=== PATIENT | male | born 1970 | race Caucasian/White ===

== ENCOUNTER 2023-10-27 16:30 | Emergency (ER) | payer OTHER ==
[2023-10-27] MEDS ORDERED: MORPHINE 4 MG/ML SYR ONE (17:06)
[2023-10-27] MEDS ORDERED: NA CHLORIDE 0.9% 1,000 ML ONE ×2 (17:06→18:17)
[2023-10-27] MEDS ORDERED: MAGNESIUM SULFATE 1 gm IVPB 1 GM/100 ML BAG IV ONE (17:06)
[2023-10-27] MEDS ORDERED: ONDANSETRON 4 MG/2 ML VIAL ONE (17:06)
[2023-10-27 17:11] LABS: Absolute Basophils 0.1 K/uL (0-0.5); Absolute Eosinophils 0.2 K/uL (0-0.5); Absolute Lymphocytes (CBC) 1.8 K/uL (0.7-4.9); Absolute Monocytes 1.1 K/uL (0.1-1.3); Absolute Neutrophil 6.8 K/uL (1.8-8.0); Basophils % 0.5 % (0-1.3); Eosinophils % 1.8 % (0-4.4); Hematocrit 41.5 % (39.6-49.0); Hemoglobin 14.1 g/dL (13.6-17.9); Lymphocytes % 18.5 % (15.3-44.8); MCH 28.5 pg (27.0-35.0); MCHC 33.9 g/dL (32.0-36.0); MPV 8.7 fL (7.6-11.3); Monocytes % 10.7 % (3.3-12.3); Neutrophils % 68.5 % (41.7-73.7); Platelets 224 thou/uL (152-406); RBC Red Blood Cell Count 4.94 M/uL (4.33-5.43)
[2023-10-27 17:22] LABS: Specific Gravity 1.015 (1.005-1.030); Sqamous Epithelial None Seen /HPF (None Seen); Urine Bacteria 20-50 /HPF (<20); Urine Bilirubin 2+ (Negative); Urine Blood Negative (Negative); Urine Clarity Turbid (Clear); Urine Color Dark-Yellow (Yellow); Urine Culture Reflex Order REFLEXED; Urine Glucose NEGATIVE (Negative); Urine Ketones NEGATIVE (Negative); Urine Microscopic Reflex YN ORDER UMIC; Urine Mucus Slight /HPF (None Seen); Urine Nitrite 1+ (Negative); Urine Protein NEGATIVE (Negative); Urine Urobilinogen 1+ (Normal)
[2023-10-27 17:29] LABS: Albumin 4.1 g/dL (3.4-5.0); Albumin/Globulin Ratio 1.2 (1.1-1.8); Anion Gap 7.8 mEq/L (5.0-15.0); Bilirubin Total 0.5 mg/dL (0.2-1.0); Globulin 3.5 g/dL (2.3-3.5); Potassium 3.8 mEq/L (3.5-5.1); Protein, Total 7.6 g/dL (6.4-8.2)
--- NOTE | 2023-10-27 18:10 | RAD REPORT ---
EXAM DESCRIPTION: CT - Abdomen Pelvis Wo Contrast - 10/27/2023 5:47 pm CLINICAL HISTORY: Abdominal pain right flank pain COMPARISON: 2015 TECHNIQUE: Computed axial tomography of the abdomen and pelvis was obtained. IV and oral contrast we re not requested. All CT scans are performed using dose optimization technique as appropriate and may include automated exposure control or mA/KV adjustment according to patient size. FINDINGS: The evaluation of solid organs, vessels and bowel is limited secondary to the lack of con trast administration. Multiple, bilateral small renal calculi. Mild right hydronephrosis. Right ureter mildly dilated. 3 mi llimeter calculus right. Multiple gallstones. Gallbladder wall does not appear thickened. Possible fatty infiltration of the liver. Spleen, pancreas and adrenals grossly normal The appendix is normal. There is no evidence of diverticulitis. Moderate umbilical hernia contains fat. There is mild to moderate stranding within the herniated fat 2.5 centimeter duodenal diverticulum. Small bilateral inguinal hernias IMPRESSION: 3 millimeter calculus right UVJ results mild right hydronephrosis. Cholelithiasis without evidence cholecystitis Moderate umbilical hernia contains fat. Mild to moderate stranding within the herniated fat may indic ate strangulation
[2023-10-27] MEDS ORDERED: CEFTRIAXONE 1000 MG/VIAL ONE (18:17)
[2023-10-27] MEDS ORDERED: HYDROCODONE/APAP 5/325 MG TAB ONE (19:48)
--- NOTE | 2023-10-27 19:49 | ER ---
Nurse's Notes [facility] Name: Gerry Rubio Age: 53 yrs Sex: Male : 1970 Arrival Date: 10/27/2023 Time: 16:30 Bed 8 Private MD: Diagnosis: Calculus of kidney with calculus of ureter;UTI/ Urinary tract infection, site not specified Presentation: 10/26 16:39 Chief complaint: Patient states: R flank pain since yesterday with N/V. Feels feverish. ll1 Coronavirus screen: Client denies travel out of the [place] in the last 14 days. At this time, the client does not indicate any symptoms associated with coronavirus-19. Ebola Screen: Patient denies travel to an Ebola-affected area in the 21 days before illness onset. Initial Sepsis Screen: Does the patient meet any 2 criteria? No. Patient's initial sepsis screen is negative. Does the patient have a suspected source of infection? No. Patient's initial sepsis screen is negative. Risk Assessment: Do you want to hurt yourself or someone else? Patient reports no desire to harm self or others. Onset of symptoms was October 26, 2023. 16:39 Method Of Arrival: Ambulatory ll1 16:39 Acuity: TD 3 ll1 Triage Assessment: 16:43 General: Appears uncomfortable, ill, Behavior is cooperative, appropriate for age, ap3 restless. Pain: Complains of pain in R flank. GI: Reports lower abdominal pain, nausea, vomiting. : Reports pain in right flank(s). Historical: - Allergies: 16:38 PENICILLINS; ll1 - PMHx: 16:38 Heart Murmur; ll1 - PSHx: 16:38 orthopedic SX (Heart Murmur); ll1 - Immunization history:: Adult Immunizations up to date. - Infectious Disease History:: Denies. - Social history:: Smoking status: Patient reports the use of cigarette tobacco products, denies chronic smoking, but will smoke occasionally, Patient denies any tobacco usage or history of. Screenin:40 [facility] ED Fall Risk Assessment (Adult) History of falling in the last 3 months, rs5 including since admission No falls in past 3 months (0 pts) Confusion or Disorientation No (0 pts) Intoxicated or Sedated No (0 pts) Impaired Gait No (0 pts) Mobility Assist Device Used No (0 pt) Altered Elimination No (0 pt) Score/Fall Risk Level 0 - 2 = Low Risk Oriented to surroundings, Maintained a safe environment. Abuse screen: Denies threats or abuse. Nutritional screening: No deficits noted. Tuberculosis screening: No symptoms or risk factors identified. Assessment: 16:40 General: Appears distressed, uncomfortable, Behavior is calm, cooperative. Pain: rs5 Complains of pain in right low back Pain currently is 7 out of 10 on a pain scale. Quality of pain is described as aching, Is continuous. Neuro: Level of Consciousness is awake, alert, obeys commands, Oriented to person, place, time, situation. Cardiovascular: Patient's skin is warm and dry. Rhythm is regular. Respiratory: Airway is patent Respiratory effort is even, unlabored, Respiratory pattern is regular, symmetrical. GI: Abdomen is round non-distended, Bowel sounds present X 4 quads. Abd is soft and non tender X 4 quads. : Reports pain with urination. EENT: No signs and/or symptoms were reported regarding the EENT system. Derm: Skin is intact, Skin is pink, warm \T\ dry. Musculoskeletal: Range of motion: intact in all extremities. 17:55 Reassessment: Patient and/or family updated on plan of care and expected duration. Pain rs5 level reassessed. Patient is alert, oriented x 3, equal unlabored respirations, skin warm/dry/pink. Patient denies pain at this time. Patient states feeling better. Patient states symptoms have improved. 19:34 Reassessment: Patient and/or family updated on plan of care and expected duration. Pain tm6 level reassessed. Patient is alert, oriented x 3, equal unlabored respirations, skin warm/dry/pink. Vital Signs: 16:39 BP 145 / 86; Pulse 89; Resp 18; Temp 97.6; Pulse Ox 99% ; Pain 9/10; ap3 17:35 BP 140 / 83; Pulse 80; Resp 18; Pulse Ox 99% on R/A; rs5 19:34 BP 126 / 89; Pulse 80; Pulse Ox 97% on R/A; Pain 3/10; tm6 19:54 BP 126 / 89; Pulse 87; Resp 18; Temp 96.9(TE); Pulse Ox 96% on R/A; Pain 4/10; tm6 16:39 Pain Scale: Adult ap3 19:34 Pain Scale: Adult tm6 19:54 Pain Scale: Adult tm6 ED Course: 16:32 Patient arrived in ED. rg4 16:40 [facility] sb4 16:40 Evan Ramos MD is Attending Physician. sb4 16:40 Triage completed. ll1 16:40 Arm band placed on Patient placed in an exam room, on a stretcher. ll1 16:40 Patient has correct armband on for positive identification. Placed in gown. Bed in low rs5 position. Call light in reach. Side rails up X2. 16:40 No provider procedures requiring assistance completed. rs5 17:03 Initial lab(s) drawn, by ED staff, sent to lab. Urine collected: clean catch specimen, jg11 clear, blood tinged. 17:07 Anish Buckner, RN is Primary Nurse. rs5 17:13 CMP Sent. iw 17:13 Lipase Sent. iw 17:13 Urinalysis w/ reflexes Sent. iw 17:47 CT Abd/Pelvis - Without Contrast In Process Unspecified. EDMS 19:00 Client placed on continuous cardiac and pulse oximetry monitoring. NIBP monitoring tm6 applied. Pulse ox on. NIBP on. Door closed. Noise minimized. Lights dimmed. Warm blanket given. Pillow given. PO fluids given. 19:55 Provided Education on: use of urine strainer. tm6 19:55 IV discontinued, intact, bleeding controlled, No redness/swelling at site. Pressure tm6 dressing applied. Administered Medications: 17:13 Drug: NS 0.9% IV 1000 ml IV at 1 bolus Per protocol; 1000 mL bolus Route: IV; Rate: 1 iw bolus; Site: left antecubital; 17:29 Follow up: Response: No adverse reaction rs5 19:57 Follow up: IV Status: Completed infusion; IV Intake: 1000ml tm6 17:13 Drug: Ondansetron IVP 4 mg IVP once; over 2 minutes Route: IVP; Site: left antecubital; iw 17:29 Follow up: Response: No adverse reaction rs5 17:13 Drug: Magnesium Sulfate IVPB 1 grams IVPB once over 1 hrs Route: IVPB; Infused Over: 1 iw hrs; Site: left antecubital; 17:29 Follow up: Response: No adverse reaction rs5 17:14 Drug: morphine IVP or IV 4 mg IVP once over 4 mins Route: IVP; Infused Over: 4 mins; iw Site: left antecubital; 17:29 Follow up: Response: No adverse reaction rs5 18:26 Drug: Rocephin IV 1 grams IV at calculated rate once; Given slow IV push per pharmacy rs5 instructions Route: IV; Rate: calculated rate; Site: left antecubital; 18:26 Drug: NS 0.9% IV 1000 ml IV at 1 bolus Per protocol; 1000 mL bolus Route: IV; Rate: 1 rs5 bolus; Site: left antecubital; 19:56 Follow up: IV Status: Completed infusion; IV Intake: 1000ml tm6 19:54 Drug: HYDROcodone-acetaminophen PO 5 mg-325 mg 2 tabs PO once Route: PO; tm6 Medication: 17:35 VIS not applicable for this client. rs5 Intake: 19:56 IV: 1000ml; Total: 1000ml. tm6 19:57 IV: 1000ml; Total: 2000ml. tm6 Outcome: 19:48 Discharge ordered by MD. sb4 19:55 Discharged to home ambulatory, with family, tm6 19:55 Condition: stable 19:55 Discharge instructions given to patient, family, Instructed on discharge instructions, follow up and referral plans. medication usage, Demonstrated understanding of instructions, follow-up care, medications, Prescriptions given X 1, 19:56 Patient left the ED. tm6 Signatures: Dispatcher [employer] EDMS Jacki Cruz RN RN iw Garcia, Rubi rg4 Navya Martinez RN RN ap3 Tonja Guillermo RN RN ll1 Yessi Vanegas PA-Annette PA-Annette sb4 Anish Buckner RN RN rs5 Pia Ibarra RN RN tm6 Maninder Pearl [id number] Corrections: (The following items were deleted from the chart) 16:43 16:39 BP 145 / 86; Pulse 89bpm; Resp 18bpm; Pulse Ox 99%; Pain 9/10, Adult; ll1 ap3
--- NOTE | 2023-10-27 19:49 | EDPHYS ---
Physician Documentation [facility] Name: Gerry Rubio Age: 53 yrs Sex: Male : 1970 Arrival Date: 10/27/2023 Time: 16:30 Bed 8 Private MD: ED Physician Evan Ramos HPI: 10/26 17:22 This 53 yrs old Male presents to ER via Ambulatory with complaints of Possible Kidney sb4 Stone. 17:22 The patient complains of pain in the right low back. The pain radiates to the right sb4 lower quadrant. Onset: The symptoms/episode began/occurred 2 day(s) ago. Modifying factors: The symptoms are alleviated by nothing. the symptoms are aggravated by nothing. Associated signs and symptoms: Pertinent positives: nausea, vomiting, Pertinent negatives: dysuria. The patient has experienced similar episodes in the past, a few times. The patient has been recently seen at an urgent care, yesterday. right flank pain x 2 days. went to urgent care yesterday, had UA done, given prescriptions for bactrim, NSAID, flomax, and pyridium. states pain is not getting any better. has had kidney stones in the past that have been small and passed on their own, does not see a urologist. Historical: - Allergies: 16:38 PENICILLINS; ll1 - PMHx: 16:38 Heart Murmur; ll1 - PSHx: 16:38 orthopedic SX (Heart Murmur); ll1 - Immunization history:: Adult Immunizations up to date. - Infectious Disease History:: Denies. - Social history:: Smoking status: Patient reports the use of cigarette tobacco products, denies chronic smoking, but will smoke occasionally, Patient denies any tobacco usage or history of. ROS: 17:22 Constitutional: Negative for fever, chills, and weight loss, sb4 17:22 Abdomen/GI: Positive for nausea and vomiting, 17:22 Back: Positive for flank pain, on the right, 17:22 All other systems are negative, Exam: 17:22 Head/Face: Normocephalic, atraumatic. Eyes: Extra-ocular motions intact. Periorbital sb4 areas with no swelling, redness, or edema. ENT: Mucous membranes moist. Cardiovascular: Regular rate and rhythm with a normal S1 and S2. Respiratory: Lungs have equal breath sounds bilaterally, clear to auscultation and percussion. No rales, rhonchi or wheezes noted. No increased work of breathing, no retractions or nasal flaring. Abdomen/GI: Soft, non-tender, no distension. Skin: Warm, dry with normal turgor. Normal color with no rashes, no lesions, and no evidence of cellulitis. MS/ Extremity: Pulses equal, no cyanosis. Neurovascular intact. Full, normal range of motion. Neuro: Awake and alert, GCS 15, oriented to person, place, time, and situation. Motor strength 5/5 in all extremities. Sensory grossly intact. 17:22 Constitutional: The patient appears alert, awake, in obvious pain, uncomfortable, 17:22 Back: pain, that is moderate, CVA tenderness, that is moderate, is noted on the right, Vital Signs: 16:39 BP 145 / 86; Pulse 89; Resp 18; Temp 97.6; Pulse Ox 99% ; Pain 9/10; ap3 17:35 BP 140 / 83; Pulse 80; Resp 18; Pulse Ox 99% on R/A; rs5 19:34 BP 126 / 89; Pulse 80; Pulse Ox 97% on R/A; Pain 3/10; tm6 19:54 BP 126 / 89; Pulse 87; Resp 18; Temp 96.9(TE); Pulse Ox 96% on R/A; Pain 4/10; tm6 16:39 Pain Scale: Adult ap3 19:34 Pain Scale: Adult tm6 19:54 Pain Scale: Adult tm6 MDM: 16:46 Patient medically screened. sb4 19:47 Data reviewed: vital signs, nurses notes, lab test result(s), radiologic studies, and sb4 as a result, I will discharge patient. Consideration of Admission/Observation Escalation of care including admission/observation considered. Counseling: I had a detailed discussion with the patient and/or guardian regarding the historical points, exam findings, and any diagnostic results supporting the discharge/admit diagnosis, lab results, radiology results, the need for outpatient follow up, a urologist, to return to the emergency department if symptoms worsen or persist or if there are any questions or concerns that arise at home. ED course: patient already prescribed bactrim for UTI, instructed to continue. no new antibiotic required at this time. ED course: patient feeling better, requesting to go home. 10/26 16:55 Order name: CBC with Diff; Complete Time: 17:17 sb4 10/26 16:55 Order name: CMP; Complete Time: 17:30 sb4 10/26 16:55 Order name: Lipase; Complete Time: 17:30 sb4 10/26 16:55 Order name: Urinalysis w/ reflexes; Complete Time: 17:29 sb4 10/26 17:30 Order name: Urine Culture EDHI 10/26 17:30 Order name: CT Abd/Pelvis - Without Contrast; Complete Time: 18:11 sb4 10/26 16:56 Order name: IV Saline Lock; Complete Time: 17:13 sb4 10/26 16:56 Order name: Labs collected and sent; Complete Time: 17:13 sb4 10/26 18:30 Order name: Misc. Order: provide patient with urine strainer pls; Complete Time: 19:23 sb4 Administered Medications: 17:13 Drug: NS 0.9% IV 1000 ml IV at 1 bolus Per protocol; 1000 mL bolus Route: IV; Rate: 1 iw bolus; Site: left antecubital; 17:29 Follow up: Response: No adverse reaction rs5 19:57 Follow up: IV Status: Completed infusion; IV Intake: 1000ml tm6 17:13 Drug: Ondansetron IVP 4 mg IVP once; over 2 minutes Route: IVP; Site: left antecubital; iw 17:29 Follow up: Response: No adverse reaction rs5 17:13 Drug: Magnesium Sulfate IVPB 1 grams IVPB once over 1 hrs Route: IVPB; Infused Over: 1 iw hrs; Site: left antecubital; 17:29 Follow up: Response: No adverse reaction rs5 17:14 Drug: morphine IVP or IV 4 mg IVP once over 4 mins Route: IVP; Infused Over: 4 mins; iw Site: left antecubital; 17:29 Follow up: Response: No adverse reaction rs5 18:26 Drug: Rocephin IV 1 grams IV at calculated rate once; Given slow IV push per pharmacy rs5 instructions Route: IV; Rate: calculated rate; Site: left antecubital; 18:26 Drug: NS 0.9% IV 1000 ml IV at 1 bolus Per protocol; 1000 mL bolus Route: IV; Rate: 1 rs5 bolus; Site: left antecubital; 19:56 Follow up: IV Status: Completed infusion; IV Intake: 1000ml tm6 19:54 Drug: HYDROcodone-acetaminophen PO 5 mg-325 mg 2 tabs PO once Route: PO; tm6 Disposition: 19:55 Co-signature as Attending Physician, Evan Ramos MD I reviewed the patient's care rt provided by the Advanced Practice Provider and agree with the diagnosis and treatment plan. Disposition Summary: 10/27/23 19:48 Discharge Ordered Problem: new sb4 Symptoms: have improved sb4 Condition: Stable sb4 Diagnosis - Calculus of kidney with calculus of ureter sb4 - UTI/ Urinary tract infection, site not specified sb4 Followup: sb4 - With: Private Physician - When: 2 - 3 days - Reason: Recheck today's complaints, Re-evaluation by your physician Discharge Instructions: - Discharge Summary Sheet sb4 - Kidney Stones sb4 - Urinary Tract Infection, Adult, [id number] sb4 Forms: - Thank You Letter sb4 - Antibiotic Education sb4 - Prescription Opioid Use sb4 - Patient Portal Instructions sb4 - Leadership Thank You Letter sb4 Prescriptions: - acetaminophen-codeine 300-30 mg Oral tablet - take 1 tablet ORAL route every 6 hours as needed for pain; 20 tablet; Refills: sb4 0, Product Selection Permitted Signatures: Dispatcher [employer] EDJacki Huang RN RN iw Lewis, Lynsay RN RN ll1 Yessi Vanegas, PAJan PAJan sb4 Evan Ramos MD MD rt Anish Buckner RN RN rs5 Pia Ibarra RN RN tm6 Corrections: (The following items were deleted from the chart) 17:31 17:31 Abdomen Pelvis Wo Con+CT.RAD.BRZ ordered. EDMS EDMS 17:35 16:56 Abdomen Pelvis W Con+CT.RAD.BRZ ordered. EDMS EDMS
[2023-10-27 20:29] VITALS: BP 126/89; TEMP 96.9; O2SAT 96
== END 2023-10-27 19:56 | disposition home or self-care (01) ==
LOC: ER 16:30
DX: N20.2 Calculus of kidney with calculus of ureter (principal); N39.0 Urinary tract infection, site not specified; F17.210 Nicotine dependence, cigarettes, uncomplicated; Z88.0 Allergy status to penicillin; Z87.442 Personal history of urinary calculi
CPT/HCPCS: 96361; 87088; 85025; 81001; 87086; 36415; 83690; 80053; 74176; 96375; 96374; 99284; J3475; J2405; J7030 ×2; J0696

== ENCOUNTER 2023-12-31 02:34 | Emergency (ER) | payer OTHER ==
[2023-12-31] MEDS ORDERED: ASPIRIN 81 MG CHEWABLE TABLET ONE (02:58)
[2023-12-31] MEDS ORDERED: ONDANSETRON 4 MG/2 ML VIAL ONE (02:58)
[2023-12-31] MEDS ORDERED: NA CHLORIDE 0.9% 1,000 ML ONE (02:59)
[2023-12-31] MEDS ORDERED: MORPHINE 4 MG/ML SYR ONE (02:59)
[2023-12-31 03:27] LABS: Absolute Eosinophils 0.2 K/uL (0-0.5); Absolute Lymphocytes (CBC) 2.7 K/uL (0.7-4.9); Absolute Monocytes 0.8 K/uL (0.1-1.3); Absolute Neutrophil 2.6 K/uL (1.8-8.0); Basophils % 0.6 % (0-1.3); Eosinophils % 2.6 % (0-4.4); Hematocrit 38.9 % (39.6-49.0); Hemoglobin 13.3 g/dL (13.6-17.9); Lymphocytes % 42.5 % (15.3-44.8); MCH 28.4 pg (27.0-35.0); MCHC 34.2 g/dL (32.0-36.0); MCV 82.9 fL (80-100); MPV 8.2 fL (7.6-11.3); Monocytes % 12.9 % (3.3-12.3); Neutrophils % 41.4 % (41.7-73.7); Nucleated Red Blood Cells % 0.3 % (0-0); Platelets 174 thou/uL (152-406); RBC Red Blood Cell Count 4.69 M/uL (4.33-5.43); Red Cell Distribution Width 14.1 % (12.1-15.2)
[2023-12-31 03:50] LABS: PT Prothrombin Time 10.9 SECONDS (9.4-12.5); Protime INR 0.99
[2023-12-31 03:53] LABS: Anion Gap 5.6 mEq/L (5.0-15.0); Potassium 3.6 mEq/L (3.5-5.1); Troponin High Sensitivity 3.2 pg/mL (<58.9)
--- NOTE | 2023-12-31 06:30 | ER ---
Nurse's Notes [facility] Name: Gerry Rubio Age: 53 yrs Sex: Male : 1970 Arrival Date: 12/31/2023 Time: 02:34 Bed 4 Private MD: Diagnosis: Chest pain, unspecified Presentation: 12/30 02:45 Chief complaint: Patient states: chest pain radiating to back. vc1 02:45 Coronavirus screen: Vaccine status: Patient reports receiving the 2nd dose of the covid vc1 vaccine. Client denies travel out of the [place] in the last 14 days. At this time, the client does not indicate any symptoms associated with coronavirus-19. Ebola Screen: Patient negative for fever greater than or equal to 101.5 degrees Fahrenheit, and additional compatible Ebola Virus Disease symptoms Patient denies exposure to infectious person. Patient denies travel to an Ebola-affected area in the 21 days before illness onset. No symptoms or risks identified at this time. Initial Sepsis Screen: Does the patient meet any 2 criteria? No. Patient's initial sepsis screen is negative. Does the patient have a suspected source of infection? No. Patient's initial sepsis screen is negative. Risk Assessment: Do you want to hurt yourself or someone else? Patient reports no desire to harm self or others. Onset of symptoms was December 31, 2023 at 00:00. 02:45 Method Of Arrival: Wheelchair vc1 02:45 Acuity: TD 3 vc1 Historical: - Allergies: 03:32 PENICILLINS; vc1 - PMHx: 03:32 Heart Murmur; vc1 - PSHx: 03:32 orthopedic SX (Mu); vc1 - Immunization history:: Adult Immunizations up to date, Client reports receiving the 2nd dose of the Covid vaccine, Flu vaccine is up to date. - Infectious Disease History:: Denies. - Social history:: Smoking status: Patient denies any tobacco usage or history of. Screenin:47 [facility] ED Fall Risk Assessment (Adult) History of falling in the last 3 months, ha1 including since admission No falls in past 3 months (0 pts) Confusion or Disorientation No (0 pts) Intoxicated or Sedated No (0 pts) Impaired Gait No (0 pts) Mobility Assist Device Used No (0 pt) Altered Elimination Score/Fall Risk Level 0 - 2 = Low Risk Oriented to surroundings, Maintained a safe environment, Educated pt \T\ family on fall prevention, incl call for assistance when getting out of bed, Hourly rounding (assess needs \T\ fall precautionary measures) done. 03:33 Abuse screen: Denies threats or abuse. Nutritional screening: No deficits noted. vc1 Tuberculosis screening: No symptoms or risk factors identified. Assessment: 02:47 General: Appears uncomfortable, Behavior is cooperative. Pain: Complains of pain in ha1 chest Pain radiates to back Pain currently is 8 out of 10 on a pain scale. Quality of pain is described as pressure, throbbing, Pain began suddenly. Neuro: Level of Consciousness is awake, alert, obeys commands, Oriented to person, place, time, situation. Cardiovascular: Reports chest pain, Heart tones S1 S2 present Capillary refill < 3 seconds Patient's skin is warm and dry. Rhythm is sinus rhythm. Respiratory: Airway is patent Respiratory effort is even, unlabored, Respiratory pattern is regular, symmetrical. GI: Abdomen is round non-distended, Reports nausea. : No signs and/or symptoms were reported regarding the genitourinary system. Derm: Skin is pink, warm \T\ dry. Musculoskeletal: Circulation, motion, and sensation intact. Range of motion: intact in all extremities. 03:45 Reassessment: Patient and/or family updated on plan of care and expected duration. Pain ha1 level reassessed. Patient is alert, oriented x 3, equal unlabored respirations, skin warm/dry/pink. Patient states feeling better. Patient states symptoms have improved. 04:40 Reassessment: Patient and/or family updated on plan of care and expected duration. Pain ha1 level reassessed. Patient is alert, oriented x 3, equal unlabored respirations, skin warm/dry/pink. Vital Signs: 02:45 BP 136 / 92; Pulse 66; Resp 15; Temp 98.3; Pulse Ox 99% ; Weight 92.99 kg; Height 5 ft. vc1 10 in. ; Pain 8/10; 03:17 BP 136 / 110; Pulse 62; Pulse Ox 96% ; ec2 03:30 BP 112 / 78; Pulse 64; Resp 17 S; Pulse Ox 97% on R/A; ha1 04:40 BP 118 / 88; Pulse 69; Resp 17 S; Pulse Ox 97% on R/A; ha1 02:45 Body Mass Index 29.41 (92.99 kg, 177.8 cm) vc1 02:45 Pain Scale: Adult vc1 ED Course: 02:47 Patient arrived in ED. ec2 02:47 Patient has correct armband on for positive identification. Bed in low position. Call ha1 light in reach. Side rails up X 1. Adult w/ patient. 02:47 Client placed on continuous cardiac and pulse oximetry monitoring. NIBP monitoring ha1 applied. night monitor on. 02:48 Riccardo Camara MD is Attending Physician. ec2 02:55 Basic Metabolic Panel Sent. cp4 02:55 PT-INR Sent. cp4 02:55 Troponin HS Sent. cp4 03:00 Provided Education on: medication administration . ha1 03:31 XRAY Chest (1 view) In Process Unspecified. EDMS 03:32 Triage completed. vc1 04:10 CT Chest For PE Angio In Process Unspecified. EDMS 05:23 Troponin High Sensitivity Sent. cp4 05:24 Repeat lab(s) drawn. by nh, sent to lab. cp4 06:39 Riccardo Camara MD is Attending Physician. ec2 06:50 No provider procedures requiring assistance completed. IV discontinued, intact, ha1 bleeding controlled, No redness/swelling at site. Pressure dressing applied. Administered Medications: 03:00 Drug: NS 0.9% IV 1000 ml IV at 1 bolus Per protocol; 1000 mL bolus Route: IV; Rate: 1 ha1 bolus; Site: left antecubital; 03:00 Drug: Ondansetron IVP 4 mg IVP once; over 2 minutes Route: IVP; Site: left antecubital; ha1 03:30 Follow up: Response: No adverse reaction ha1 03:00 Drug: Aspirin PO Chewable Tablet 162 mg PO once Route: PO; ha1 03:30 Follow up: Response: No adverse reaction ha1 03:02 Drug: morphine IVP or IV 4 mg IVP once over 4 mins Route: IVP; Infused Over: 4 mins; ha1 Site: left antecubital; 03:30 Follow up: Response: No adverse reaction; Pain is decreased; RASS: Alert and Calm (0) ha1 03:09 Not Given (Physician Discretion): aspirinchewable tablet 324 mg PO once; 81 mg tablets ha1 x 4 Medication: 05:09 VIS not applicable for this client. ha1 Outcome: 06:30 Discharge ordered by . ec2 06:55 Condition: stable ha1 06:55 Discharged to home ambulatory, with family, ha1 06:55 Discharge instructions given to patient, family, Instructed on discharge instructions, follow up and referral plans. Demonstrated understanding of instructions, follow-up care, 06:56 Patient left the ED. ha1 Signatures: Dispatcher [employer] Gaby Tejada RN RN 1 Yazmin Mariee RN RN ha1 Riccardo Camara MD MD ec2 Rosamaria Garnica [facility]
--- NOTE | 2023-12-31 06:31 | EDPHYS ---
Physician Documentation [facility] Name: Gerry Rubio Age: 53 yrs Sex: Male : 1970 Arrival Date: 12/31/2023 Time: 02:34 Bed 4 Private MD: ED Physician Riccardo Camara HPI: 12/30 03:16 This 53 yrs old Male presents to ER via Unassigned with complaints of Chest Pain. ec2 03:16 Patient arrives today for evaluation of chest pain. Patient reports that he started ec2 having chest pain approximately 2 hours prior to arrival. Patient reports no difficulty breathing. Reports history of ACS.. Historical: - Allergies: 03:32 PENICILLINS; vc1 - PMHx: 03:32 Heart Murmur; vc1 - PSHx: 03:32 orthopedic SX (Mu); vc1 - Immunization history:: Adult Immunizations up to date, Client reports receiving the 2nd dose of the Covid vaccine, Flu vaccine is up to date. - Infectious Disease History:: Denies. - Social history:: Smoking status: Patient denies any tobacco usage or history of. ROS: 03:16 Constitutional: as per hpi ec2 Exam: 03:16 Constitutional: GEN: Uncomfortable individual Head: atraumatic Eyes: EOMI Ears: ec2 External ears are normal. CV: regular rate LUNGS: no respiratory distress ABD: non-distended SKIN: no evidence of rashes MSK: no evidence of trauma NEURO: moves all extremities equally Vital Signs: 02:45 BP 136 / 92; Pulse 66; Resp 15; Temp 98.3; Pulse Ox 99% ; Weight 92.99 kg; Height 5 ft. vc1 10 in. ; Pain 8/10; 03:17 BP 136 / 110; Pulse 62; Pulse Ox 96% ; ec2 03:30 BP 112 / 78; Pulse 64; Resp 17 S; Pulse Ox 97% on R/A; ha1 04:40 BP 118 / 88; Pulse 69; Resp 17 S; Pulse Ox 97% on R/A; ha1 02:45 Body Mass Index 29.41 (92.99 kg, 177.8 cm) vc1 02:45 Pain Scale: Adult vc1 MDM: 02:47 Patient medically screened. ec2 02:48 Data reviewed: vital signs. ED course: Patient here today for evaluation of chest pain. ec2 Examination remarkable for component of virtual otherwise reassuring hemodynamics. Will obtain lab work, EKG, treat the patient's symptoms and reassess. Differential diagnosis includes ACS, PE, dissection.. 02:48 ED course: EKG independently reviewed and interpreted by me, shows normal sinus rhythm, ec2 rate of 62, no acute stable elevations, normal to nonconcerning. . 04:06 ED course: Metabolic profile shows renal dysfunction. CBC is reassuring, troponin is ec2 within normal ranges. . 05:10 ED course: Chest x-ray independently reviewed and interpreted by me, shows no acute ec2 intrathoracic process.. 05:30 ED course: Repeat EKG independently reviewed and interpreted by me, shows normal sinus ec2 rhythm, rate 65, no acute ST segment elevations, intervals are not concerning. No significant change compared to initial. 06:06 ED course: Will repeat troponin is static. ec2 06:27 ED course: CT scan of the chest shows no evidence of PE or aortic pathology. On ec2 reassessment patient is well-appearing in no acute distress.. 12/30 02:48 Order name: Basic Metabolic Panel; Complete Time: 04:05 ec2 12/30 02:48 Order name: CBC with Diff; Complete Time: 04:05 ec2 12/30 02:48 Order name: PT-INR; Complete Time: 04:05 ec2 12/30 02:48 Order name: Troponin HS; Complete Time: 04:05 ec2 12/30 05:13 Order name: Troponin High Sensitivity; Complete Time: 06:06 ec2 12/30 02:48 Order name: XRAY Chest (1 view) ec2 12/30 03:16 Order name: CT Chest For PE Angio ec2 12/30 02:48 Order name: EKG; Complete Time: 02:49 ec2 12/30 02:48 Order name: Cardiac monitoring; Complete Time: 02:55 ec2 12/30 02:48 Order name: EKG - Nurse/Tech; Complete Time: 02:55 ec2 12/30 02:48 Order name: IV Saline Lock; Complete Time: 02:55 ec2 12/30 02:48 Order name: Labs collected and sent; Complete Time: 02:55 ec2 12/30 02:48 Order name: O2 Per Protocol; Complete Time: 02:55 ec2 12/30 02:48 Order name: O2 Sat Monitoring; Complete Time: 02:55 ec2 12/30 05:13 Order name: EKG - Nurse/Tech; Complete Time: 05:30 ec2 12/30 05:13 Order name: Misc. Order: repeat ekg/trop; Complete Time: 05:23 ec2 Administered Medications: 03:00 Drug: NS 0.9% IV 1000 ml IV at 1 bolus Per protocol; 1000 mL bolus Route: IV; Rate: 1 ha1 bolus; Site: left antecubital; 03:00 Drug: Ondansetron IVP 4 mg IVP once; over 2 minutes Route: IVP; Site: left antecubital; ha1 03:30 Follow up: Response: No adverse reaction ha1 03:00 Drug: Aspirin PO Chewable Tablet 162 mg PO once Route: PO; ha1 03:30 Follow up: Response: No adverse reaction ha1 03:02 Drug: morphine IVP or IV 4 mg IVP once over 4 mins Route: IVP; Infused Over: 4 mins; ha1 Site: left antecubital; 03:30 Follow up: Response: No adverse reaction; Pain is decreased; RASS: Alert and Calm (0) ha1 03:09 Not Given (Physician Discretion): aspirinchewable tablet 324 mg PO once; 81 mg tablets ha1 x 4 Disposition Summary: 12/31/23 06:30 Discharge Ordered Notes: Location: Home ec2 Condition: Stable ec2 Diagnosis - Chest pain, unspecified ec2 Followup: ec2 - With: Private Physician - When: - Reason: Re-evaluation by your physician Discharge Instructions: - Discharge Summary Sheet ec2 - Nonspecific Chest Pain, Adult, [id number] ec2 Forms: - Medication Reconciliation Form ec2 - Antibiotic Education ec2 - Prescription Opioid Use ec2 - Patient Portal Instructions ec2 - Leadership Thank You Letter ec2 Signatures: Dispatcher [employer] Gaby Tejada RN RN 1 Yazmin Mariee RN RN ha1 Riccardo Camara MD MD ec2 Corrections: (The following items were deleted from the chart) 02:49 02:49 BASIC METABOLIC PANEL+C.LAB.BRZ ordered. EDMS EDMS 02:49 02:49 CBC+H.LAB.BRZ ordered. EDMS EDMS 02:49 02:49 PROTIME (+INR)+COAG.LAB.BRZ ordered. EDMS EDMS 02:49 02:49 Troponin High Sensitivity+C.LAB.BRZ ordered. EDMS EDMS
[2023-12-31 07:23] VITALS: BP 118/88; TEMP 98.3; O2SAT 97
--- NOTE | 2023-12-31 13:27 | EKG ---
Test Date: 2023-12-31 Test Time: 05:27:29 Waiter/Waitress Captain: JOE MEASUREMENT RESULTS: Intervals: Rate: 65 IL: 134 QRSD: 96 QT: 414 QTc: 430 [place]: P: 25 IL: 134 QRS: 31 T: 39 INTERPRETIVE STATEMENTS: Normal sinus rhythm Normal ECG No previous ECG available for comparison Electronically Signed On 12-31-23 13:26:52 CDT by Kali Raines
--- NOTE | 2024-01-01 13:07 | EKG ---
Test Date: 2023-12-31 Test Time: 02:44:52 Clinical Lab Specialist: YRN MEASUREMENT RESULTS: Intervals: Rate: 62 CT: 142 QRSD: 98 QT: 408 QTc: 414 [place]: P: 43 CT: 142 QRS: 19 T: 35 INTERPRETIVE STATEMENTS: Normal sinus rhythm Normal ECG No previous ECG available for comparison Electronically Signed On 01-01-24 13:03:34 CDT by Kali Raines
--- NOTE | 2024-01-01 22:33 | RAD REPORT ---
EXAM DESCRIPTION: CT - Chest For Pe Angio - 12/31/2023 7:18 am Chest For Pe Angio RadLex: CT CHEST ANGIOGRAPHY WITH IV CONTRAST CLINICAL HISTORY: CHEST PAIN; Bed Name: 4 TECHNIQUE: CT angiogram of the chest using intravenous contrast. MIP reconstructions were performed. All CT scans at this facility use dose modulation, iterative reconstruction, and/or weight based dosi ng when appropriate to reduce radiation dose to as low as reasonably achievable. COMPARISON: None. FINDINGS: Pulmonary arteries: The pulmonary arteries appear widely patent. There is no evidence for pulmonary embolism. Mediastinum: The heart and great vessels appear unremarkable. Mild atherosclerosis of the coronary ar teries There is no evidence for pericardial effusion. There is no pathologically enlarged adenopathy. LUNGS: few sub-0.4 cm nodules are seen in the bilateral lungs below the threshold for follow-up. Ther e is no alveolar consolidation, effusion or pneumothorax. visualized abdomen: Cholelithiasis. Bones and soft tissues: There are degenerative changes. The soft tissues are normal. IMPRESSION: 1. No evidence for pulmonary embolism or other acute cardiopulmonary process. 2. Cholelithiasis. Electronically signed by: Santino Escobar MD 12/31/2023 06:22 AM CDT Due to temporary technical issues with the PACS/Fluency reporting system, reports are being signed by the in house radiologists without review as a courtesy to insure prompt reporting. The interpreting radiologist is fully responsible for the content of the report.
--- NOTE | 2024-01-01 22:34 | RAD REPORT ---
EXAM DESCRIPTION: RAD - Chest Single View - 12/31/2023 3:30 am CLINICAL HISTORY: CHEST PAIN COMPARISON: None TECHNIQUE: Single AP view of the chest. FINDINGS: Lung volumes diminished. Bronchovascular crowding. Cardiac silhouette is normal in size. No pneumothorax. No large pleural effusion. No focal consolidation. No acute bony finding. IMPRESSION: 1. No acute cardiopulmonary findings. 2. Low lung volumes with associated hypoventilatory changes. Electronically signed by: Duc Ha MD 12/31/2023 05:06 AM CDT Z9 Due to temporary technical issues with the PACS/Fluency reporting system, reports are being signed by the in house radiologists without review as a courtesy to insure prompt reporting. The interpreting radiologist is fully responsible for the content of the report.
== END 2023-12-31 06:56 | disposition home or self-care (01) ==
LOC: ER 02:34
DX: R07.9 Chest pain, unspecified (principal)
CPT/HCPCS: 93005; 85025; 80048; 36415; 85610; 84484 ×2; 71275; 71045; Q9967; J2405; J7030

== ENCOUNTER 2024-03-21 11:27 | Day surgery (SDC) | payer OTHER ==
[2024-03-20 11:11] LABS: Absolute Eosinophils 0.3 K/uL (0-0.5); Absolute Lymphocytes (CBC) 1.8 K/uL (0.7-4.9); Absolute Monocytes 0.7 K/uL (0.1-1.3); Absolute Neutrophil 3.4 K/uL (1.8-8.0); Basophils % 0.6 % (0-1.3); Eosinophils % 4.3 % (0-4.4); Hematocrit 45.4 % (39.6-49.0); Lymphocytes % 29.6 % (15.3-44.8); MCH 28.3 pg (27.0-35.0); MCHC 33.1 g/dL (32.0-36.0); MCV 85.4 fL (80-100); MPV 8.6 fL (7.6-11.3); Monocytes % 10.8 % (3.3-12.3); Neutrophils % 54.7 % (41.7-73.7); Nucleated Red Blood Cells % 0.1 % (0-0); Platelets 205 thou/uL (152-406); RBC Red Blood Cell Count 5.32 M/uL (4.33-5.43); Red Cell Distribution Width 13.9 % (12.1-15.2)
[2024-03-20 11:15] LABS: Anion Gap 8.4 mEq/L (5.0-15.0); Potassium 4.4 mEq/L (3.5-5.1)
[2024-03-21] MEDS ORDERED: Ringers Lactate 1,000 ML IV ONE (11:31)
[2024-03-21] MEDS ORDERED: propofoL 200 MG/20 ML VIAL IV ONE ×2 (13:06→13:34)
[2024-03-21 14:25] VITALS: BP 113/82; TEMP 97.1; O2SAT 96
== END 2024-03-21 14:34 | disposition home or self-care (01) ==
LOC: OR 11:27
PROVIDERS: ATTEND Surgery
PROC: 0DJD8ZZ Inspection of Lower Intestinal Tract, Via Natural or Artificial Opening Endoscopic (ICD-10-PCS; principal; 2024-03-21 12:45)
DX: Z12.11 Encounter for screening for malignant neoplasm of colon (principal); K64.8 Other hemorrhoids
CPT/HCPCS: 85025; 80048; 36415; 45378; J2704 ×2; J7120

== ENCOUNTER 2024-04-19 10:46 | Day surgery (SDC) | payer OTHER ==
[2024-04-19] MEDS ORDERED: propofoL 200 MG/20 ML VIAL IV ONE (11:23)
[2024-04-19] MEDS ORDERED: ONDANSETRON 4 MG/2 ML VIAL ONE (11:23)
[2024-04-19] MEDS ORDERED: GLYCOPYRROLATE 0.2 MG/ML SYR ONE (11:23)
[2024-04-19] MEDS ORDERED: NEOSTIGMINE 1 MG/ML -10 ML VIAL ONE (11:23)
[2024-04-19] MEDS ORDERED: MIDAZOLAM HCL 2 MG/2 ML INJ ONE (11:24)
[2024-04-19] MEDS ORDERED: FENTANYL CITR 100 MCG/2 ML ONE ×2 (11:24→12:39)
[2024-04-19] MEDS ORDERED: LIDOCAINE 2% MPF 5 ML VIAL ONE (11:25)
[2024-04-19] MEDS ORDERED: ROCURONIUM 50 MG/5 ML VIAL IV ONE (11:25)
[2024-04-19] MEDS: CLINDAMYCIN 600MG/D5W 50 ML IV ONE (12:04)
[2024-04-19] MEDS: LIDOCAINE HCL/EPINEPHRINE 20 ML MDV ONE (12:32)
[2024-04-19] MEDS ORDERED: dexAMETHasone 10 MG/ML VIAL ONE (12:33)
[2024-04-19] MEDS ORDERED: KETOROLAC 30 MG/ML INJ ONE (12:33)
[2024-04-19] MEDS ORDERED: EPHEDRINE SULF 50 MG/ML VIAL ONE (12:35)
[2024-04-19] MEDS ORDERED: ATROPINE SULF 1 MG/10 ML SYR IV ONE ×2 (12:36→12:37)
--- NOTE | 2024-04-19 13:19 | P.OP ---
Preoperative diagnosis: Ventral Incarcerated Umbilical Hernia Postoperative diagnosis: Ventral Incarcerated Umbilical Hernia Primary procedure: Laparoscopic Umbilical Hernia Repair with mesh Anesthesia: GETA + Local Estimated blood loss: <5cc Specimen: Hernia Contents Findings: 2cm umbilical hernia with incarcerated adipose Complications: None Implants: Bard Ventralite 11.4cm Round, Sorbafix + Absorbatac Transferred to: Recovery Room Condition: Good
[2024-04-19] MEDS ORDERED: LABETALOL 20 MG/4ML SYRINGE IV ONE (13:28)
[2024-04-19 14:27] VITALS: BP 111/85; TEMP 97.5
[2024-04-19] MEDS ORDERED: HYDROCODONE/APAP 10/325 TAB ONE (14:38)
[2024-04-19] MEDS: HYDROCODONE/APAP 10/325 TAB PO ONE (14:44)
[2024-04-19] MEDS: Ringers Lactate 1,000 ML IV ONE (15:23)
[2024-04-19] MEDS: ONDANSETRON 4 MG/2 ML VIAL ONE (15:34)
[2024-04-19 15:58] VITALS: O2SAT 96
--- NOTE | 2024-04-19 23:06 | OP ---
Date of Procedure: 04/19/2024 Surgeon: Sheldon Almaguer MD, Preoperative Diagnosis: Ventral incarcerated umbilical hernia. Postoperative Diagnosis: Ventral incarcerated umbilical hernia. Procedure: Laparoscopic umbilical hernia repair with mesh. Anesthesia: General endotracheal plus local 1% lidocaine with epinephrine. Estimated Blood Loss: Less than 5 cc. Specimen: Hernia contents. Findings: Approximately 2 cm umbilical hernia with incarcerated adipose tissue. Complications: None. Implants: Bard Ventralight ST mesh with Echo Positioning System, 11.4 cm round mesh utilizing Sorbaf ix fixation tacks x15 and AbsorbaTack x30 tacks utilized. Disposition: The patient was transferred to recovery room in good condition. Procedure In Detail: After informed consent was obtained, the patient was brought to the operating r oom, prepped and draped in the usual sterile fashion. After adequate anesthesia was achieved, I anes thetized the area in the left upper quadrant down to subcutaneous tissue. A 5-mm 0-degree optical tr ocar was introduced without incident or complication. Insufflation was obtained to 15 mmHg at this t eliza. There was no injury to vital structures upon entering the abdomen. Additional trocar was place d in the left mid abdomen. This was similarly anesthetized and sharply incised. A 12 mm trocar was placed under direct visualization without incident or complication. At this point, I proceeded to ta ke down the adipose tissue from the umbilical hernia defect which is a combination of omental adipose tissue which is incarcerated as well as hernia contents and preperitoneal fat. This was taken down using the LigaSure device, ultimately ligated, placed in EndoCatch bag and removed through the 12 mm trocar and sent off for pathologic examination. After the hernia defect was completely closed and sw ept clean, I swept back the preperitoneal fat from the anterior and posterior areas as well as the saleem perior and inferior aspects to allow for appropriate landing zone of the mesh. At this point, I brou ght in a V-Loc suture on the Endo Stitch and secured the hernia defect in a running fashion, imbricat ing the hernia sac at this point. After this was completed in a running fashion, good apposition of the tissues, the 11.4 cm Bard Ventralight mesh was brought into the abdomen, deployed appropriately a t the supraumbilical position through a separate stab incision and secured to the anterior abdominal wall using a single crown of AbsorbaTack absorbable screws. At this point, the balloon deployment sy stem was removed and found to be intact on the back table and sent off. At this point, a total of 45 screws were used using a combination of 30 AbsorbaTack and 15 Sorbafix tacks to the anterior abdomin al wall. At this point, the mesh was in good apposition. No hemostasis required. I then closed the 12 mm trocar site using a Paul-Michael suture passer and 0 Vicryl in interrupted fashion with goo d approximation of tissues and was desufflated under direct vision without incident or complication. Remaining trocars were removed. All skin incisions were then copiously irrigated and closed with a 4-0 Monocryl in a running fashion. Dermabond was placed over top. The patient tolerated procedure w ell without incident or complication and transferred to PACU in good condition. All counts were jackie ect at the end of the case. FERNANDEZ/BERTRAM Voice ID: [id number] Report ID: [id number]
== END 2024-04-19 15:54 | disposition home or self-care (01) ==
LOC: OR 10:46
PROVIDERS: ATTEND Surgery
PROC: 0WUF4JZ Supplement Abdominal Wall with Synthetic Substitute, Percutaneous Endoscopic Approach (ICD-10-PCS; principal; 2024-04-19 11:45)
DX: K42.0 Umbilical hernia with obstruction, without gangrene (principal)
CPT/HCPCS: 49592; J2704; J2710; J0461 ×2; J2001; J2250; J3010 ×2; J1100; J2405 ×2; J7120; C1781; 88302